=== PATIENT | female | born 1975 | race Caucasian/White ===

== ENCOUNTER 2017-07-24 21:26 | Inpatient (IN) | payer SELFPAY ==
[2017-07-24 22:40] LABS: Mean Corpuscular HGB CONC 29.9 g/dL (32.0-36.0); Mean Corpuscular Hemoglobin 19.6 pg (27.0-31.0); Mean Corpuscular Volume 65.5 fl (81.0-99.0); Mean Platelet Volume 9.8 fL (7.4-10.4); Platelet Count 381 thou/uL (130-400); RBC Distribution Width 18.1 % (11.5-14.5); Red Blood Cell (RBC) Count 3.57 mill/uL (4.20-5.40); White Blood Cell (WBC) Count 5.9 thou/uL (4.8-10.8)
[2017-07-24 22:48] LABS: Anisocytosis SLIGHT = 6-15 cells (100X) (0-5/hpf); Band 8 % (5-11); Hypochromia MODERATE=16-30 cells (100X) (0-5/hpf); Lymphocytes 17 % (21-51); MDiff Complete? YES; Microcytosis MODERATE=15-30 cells (100X) (0-5/hpf); Monocytes 11 % (0-10); Neutrophil 64 % (42-75)
[2017-07-24 22:51] LABS: ALT (SGPT) 10 U/L (8-55); AST (SGOT) 14 U/L (5-34); Albumin 3.6 g/dL (3.5-5.0); Alkaline Phosphatase 82 U/L (40-150); Anion Gap 9 mmol/L (10-20); BUN (Urea Nitrogen) 8 mg/dL (7.0-18.7); Bilirubin, Total 0.3 mg/dL (0.2-1.2); Calc. Creatinine Clearance 0 mL/min (70-130); Calcium 8.3 mg/dL (7.8-10.44); Carbon Dioxide 23 mmol/L (22-29); Chloride 104 mmol/L (98-107); Estimated GFR-MDRD 78; Globulin 3.2 g/dL (2.4-3.5); Glucose 98 mg/dL (70-105); Potassium 3.4 mmol/L (3.5-5.1); Protein, Total 6.8 g/dL (6.0-8.3); Sodium 133 mmol/L (136-145)
[2017-07-24 22:52] LABS: Bilirubin Negative (Negative); Blood, Urine Small (Negative); Clarity CLEAR (Clear); Glucose, Urine (Dipstick) Negative (Negative); Leukocyte Negative (Negative); Nitrite Negative (Negative); Protein, Urine (Dipstick) Negative (Neg-Trace); Specific Gravity, Urine 1.016 (1.002-1.036); Urobilinogen 0.2 mg/dL (0.2-1.0)
[2017-07-24 22:54] LABS: Bacteria/HPF None Seen HPF (None Seen); Hyaline Casts/LPF 0-3 HYALINE CAST LPF (0-3 Hyaline); Squamous Epithelial 0-3 HPF (0-3); WBC/HPF 0-3 HPF (0-3)
--- NOTE | 2017-07-25 00:40 | PDOC.EVN ---
Event Note - Event Note Event Note: ER HUMAN RESOURCES TRAINEE Consult (Room 13) Reason for eval: HX HMB Requesting MD: Zev (via Resident) HPI: 41 yo W SAB2 with HX 4 mos of irregulat HMB. Was seen in [place] and sent here for "blood transfusion". Hgb there was 6-7, and 7 here (Hct 21). the resident in the ED has ordered 1 unit PRBC due to patient complaint of dizziness. I evaluated the patient in room 13 at 0030. Past med HX: Rt elbow bursitis Rx with rocephin Allergies: sulfa/Toradol Surg: BTL in 90s, arthroscopy Rn Embedded HX: no Rn Embedded MD, no past work up for HMB Physical exam: Pulse 104, temp was 100 NAD Abd sodt nt pelvic by me: noCMT, no VB, no blood in vault Labs ordered: TSH GC/CHL PCR Radiology ordered: pelvic sono EMB pending (requested formalin cup) Assessment: HMB in a 41 year old Plan: 1. TSH, vWF ordered 2. GC/CHL PCR 3. No indication for inpatient historical manuscripts curator care as not actively bleeding 4. may start oral provera 10mg po BID x 7 days, then i po QD for 2 weeks to prevent recurrence until MD office eval 5. Sono pending 6. EMB ordered (I will do once formalin container in) 7. D/W Dr Brothers.
[2017-07-25] MEDS ORDERED: Fentanyl 100 MCG/2 ML VIAL ONE (01:00)
--- NOTE | 2017-07-25 01:07 | PDOC.EVN ---
Event Note - Event Note Event Note: EMB performed by me. No cx lesions identified. EMB X 1 pass only as patient requested for further passes due to cramping. Cant tissue obtained. Sent to pathology.
--- NOTE | 2017-07-25 02:53 | PDOC.EVN ---
Event Note - Event Note Event Note: Lab check: TSH normal
[2017-07-25] MEDS ORDERED: Acetaminophen 325 MG TAB PO PRN ×2 (03:21→06:52)
[2017-07-25] MEDS ORDERED: HYDROcodone/Acetaminophen 5/325 mg Tablet PO PRN ×2 (03:21)
[2017-07-25 03:37] VITALS: BMI 23.9
[2017-07-25] MEDS: Sodium Chloride 0.9% 1,000 ML IV SCH ×4 (04:16→14:49)
[2017-07-25] MEDS: Piperacillin-Tazo-Dextrose,Iso 3.375 GM in Premix Bag 1 BAG IVPB SCH ×2 (06:06→11:31)
--- NOTE | 2017-07-25 06:43 | PDOC.EVN ---
Event Note - Event Note Event Note: Patient did receive 1 unit PRBC from ED (not listed in EMR). Sono results pending. GC-Chl pending. EMB pending. ABX per medicine for elbow bursitis.
[2017-07-25] MEDS ORDERED: Ondansetron HCl/PF 4 MG/2 ML Vial IVP PRN (06:52)
[2017-07-25] MEDS ORDERED: Mag-Al 1200 mg/1200 mg/30 ML UDCUP PO PRN (06:52)
[2017-07-25] MEDS ORDERED: hydrALAZINE 20 MG/ML VIAL SLOW IVP PRN (06:52)
[2017-07-25] MEDS ORDERED: cloNIDine 0.1 MG TAB PO PRN (06:52)
[2017-07-25] MEDS ORDERED: Senokot 8.6 MG TAB PO PRN (06:52)
[2017-07-25] MEDS ORDERED: Loratadine 10 MG TAB PO PRN (06:52)
[2017-07-25] MEDS ORDERED: Bisacodyl 5 MG TAB PO PRN (06:52)
[2017-07-25 07:45] LABS: Hemoglobin 8.1 g/dL (12.0-16.0)
[2017-07-25 07:53] LABS: Anion Gap 12 mmol/L (10-20); BUN (Urea Nitrogen) 6 mg/dL (7.0-18.7); Calc. Creatinine Clearance 89 mL/min (70-130); Calcium 8.4 mg/dL (7.8-10.44); Carbon Dioxide 22 mmol/L (22-29); Chloride 102 mmol/L (98-107); Estimated GFR-MDRD 79; Glucose 113 mg/dL (70-105); Potassium 3.2 mmol/L (3.5-5.1); Sodium 133 mmol/L (136-145)
[2017-07-25] MEDS: Famotidine 20 MG TAB PO SCH ×2 (08:51→20:18)
[2017-07-25] MEDS: Vancomycin HCl 750 MG in Sodium Chloride 0.9% 250 ML 250 ML IVPB SCH ×2 (09:00→20:10)
[2017-07-25] MEDS ORDERED: Vancomycin HCl 1.5 GM in Sodium Chloride 0.9% 250 ML 300 ML IVPB SCH (09:00)
--- NOTE | 2017-07-25 09:10 | ULT ---
PRELIMINARY REPORT/[facility]/EMERGENCY AFTER HOURS PROCEDURE: EXAM: US Pelvis, Transvaginal CLINICAL HISTORY: 41 years old, female; Signs and symptoms; Other: Prolonged vag bleeding, anemia TECHNIQUE: Real-time transvaginal pelvic ultrasound (complete) with image documentation. Transvaginal imaging wa s used for better evaluation of the endometrium and adnexa. COMPARISON: No relevant prior studies available. FINDINGS: Uterus/cervix: 8.0 x 4.1 x 4.4 cm. Normal endometrial stripe thickness at 4 mm. 0.5 cm oval myometria l focus, ventrally in the fundus may reflect a very small fibroid. Right ovary: No acute findings. No solid mass. Normal blood flow. Left ovary: No acute findings. No solid mass. Normal blood flow. Free fluid: Small volume in cul de sac, likely within normal physiologic limits. IMPRESSION: No visible source of excessive bleeding. Small probable fibroid as described. EXAM: US Duplex Arterial/Venous of the Pelvis, Complete CLINICAL HISTORY: Prolonged bleeding. Anemia. TECHNIQUE: Real-time duplex ultrasound scan of the arterial and venous flow of the pelvis with color Doppler dorothy w and spectral waveform analysis. COMPARISON: FINDINGS: Right ovary: No acute findings. 1.7 x 1.3 x 0.9 cm. No solid mass. Normal arterial and venous blood f low. No torsion. Left ovary: No acute findings. 2.8 x 1.6 x 1.9 cm. Several small simple cysts, largest measuring 1.3 x 1.3 x 1.4 cm. Normal arterial and venous blood flow. No torsion. IMPRESSION: Normal vascular flow. No acute disease. Thank you for allowing us to participate in the care of your patient. Dictated and Authenticated by: Mansoor Linn MD 07/25/2017 2:40 AM Central Time ([place] & [place]) FINAL REPORT PELVIC ULTRASOUND TRANSVAGINAL AND TRANSABDOMINAL WITH RINALDI SCALE AND DOPPLER COLOR FLOW IMAGING: FINDINGS/IMPRESSION: I agree with the preliminary interpretation. Mild nonspecific free pelvic fluid. Additional details are described above. POS: [facility]
[2017-07-25] MEDS: Piperacillin/Tazobactam 3.375 GM in Sodium Chloride 0.9% 100 ML IVPB SCH ×3 (11:33→21:19)
[2017-07-25] MEDS: medroxyPROGESTERone Acetate 5 MG TAB PO SCH ×2 (11:33→21:18)
--- NOTE | 2017-07-25 11:36 | RAD ---
RIGHT ELBOW 4 VIEW SERIES: CLINICAL HISTORY: Bursitis, septic arthritis. FINDINGS: The evaluation is limited without the position if a true lateral view. No obvious arthropathy or acu te osseous process. IMPRESSION: Limited exam, as above. If there is concern for septic arthritis, consider MRI to further evaluate. POS: [facility]
[2017-07-25] MEDS: HYDROcodone/Acetaminophen 5/325 mg Tablet PO PRN ×2 (14:48→20:17)
--- NOTE | 2017-07-25 15:50 | EKG ---
Test Reason : Blood Pressure : / mmHG Vent. Rate : 098 BPM Atrial Rate : 098 BPM P-R Int : 132 ms QRS Dur : 070 ms QT Int : 328 ms P-R-T Axes : 059 050 054 degrees QTc Int : 418 ms Normal sinus rhythm Normal ECG Confirmed by RADHA HERNANDEZ MD ([id number]), material expeditor SUZAN JOSHI ([id number]) on 07/25/2017 3:50:20 PM Referred By: Confirmed By:RADHA HERNANDEZ MD
[2017-07-25] MEDS ORDERED: Sodium Chloride 0.9% 10 ML ONE ×3 (17:35→23:15)
--- NOTE | 2017-07-25 18:41 | HP ---
DATE OF ADMISSION: 07/25/2017 PRIMARY CARE PHYSICIAN: None. CHIEF COMPLAINT: Worsening pain and redness in the right elbow as well as heavy vaginal bleed. HISTORY OF PRESENT ILLNESS: Ms. Lacy is a 41-year-old female with past medical history, who pre sented to the emergency room with complaints of mainly heavy vaginal bleed. History is mainly obtain ed by the patient herself. Electronic medical records have been reviewed. According to Ms. Lacy and she is perimenopausal and on and off she is having excessive bleeding for the last 4 months. She also complains that about 10 days ago she was bitten by a flea on her rig ht elbow and since then it has been swollen, red, hot, and tender. She is started to take clindamyci n left over from her 's prescription and 2 days later she presented to outside ER. She was pr escribed clindamycin and Keflex, but she has been taking up until now. Upon presentation, it was noted that her elbow is still hot and red and attempt was made to drain the right elbow abscess at outside ER without any success. Incidental finding was noticed with a hemogl obin of 6 with an hematocrit of 21. Because of these findings, she was transferred to our emergency room. She was admitted to [facility] floor under internal medicine care. She has received 1 unit of pac ked RBC as well as IV antibiotics in the emergency room. She has been seen by Dr. Fisher from the OB/ [facility] group and has undergone a pelvic ultrasound, which was unremarkable. She has been started on Pro vera orally. She is now being admitted for further evaluation and care of her right elbow infection with failed ou tpatient therapy. The patient also complains of nonproductive cough and sore throat and runny nose. She reports that h er has ongoing reoccurrence Staph infections and is under care for ID specialist, Dr. Bardales. PAST MEDICAL HISTORY: Chronic bronchitis. PAST SURGICAL HISTORY: Tubal ligation and right knee surgery. PSYCHIATRIC HISTORY: No anxiety or depression. SOCIAL HISTORY: She denies any drug, tobacco, or alcohol abuse. FAMILY HISTORY: No significant premature coronary artery disease or stroke. ALLERGIES: SULFONAMIDES, TORADOL, and TRAMADOL. MEDICATIONS: None. REVIEW OF SYSTEMS: The following complete review of systems was negative, unless otherwise mentioned in the HPI or below: Constitutional: Weight loss or gain, ability to conduct usual activities. Skin: Rash, itching. Eyes: Double vision, pain. ENT/Mouth: Nose bleeding, neck stiffness, pain, tenderness. Cardiovascular: Palpitations, dyspnea on exertion, orthopnea. Respiratory: Shortness of breath, wheezing, cough, hemoptysis, fever or night sweats. Gastrointestinal: Poor appetite, abdominal pain, heartburn, nausea, vomiting, constipation, or diarrh ea. Genitourinary: Urgency, frequency, dysuria, nocturia. Musculoskeletal: Pain, swelling. Neurologic/Psychiatric: Anxiety, depression. Allergy/Immunologic: Skin rash, bleeding tendency. It is negative except for those mentioned in the history and physical. LABORATORY DATA: CBC shows WBCs at 5.9, hemoglobin 7 with repeat hemoglobin of 8.1 after transfusion , platelet count of 381. She has no left shift. Serum chemistries shows sodium 133 and potassium 3. 4. C-reactive protein 1.02. TSH normal. Urinalysis is unremarkable except for small blood. PHYSICAL EXAMINATION: VITAL SIGNS: Most recent vital signs include temperature anywhere from 100.5 to 100.7, respirations 20, saturating 100% on room air, and blood pressure 133/66. GENERAL: No acute distress, awake, alert, oriented x3. HEENT: Mucous membrane is moist and pink. No oropharyngeal exudate or erythema. Head is normocepha lic, atraumatic. Pupils equal, reactive to light and accommodation. Extraocular movements intact. NECK: Supple without any lymphadenopathy, JVD, or bruit. CHEST: Clear to auscultation without any wheezing, rales, or rhonchi. Rate and rhythm is regular wi thout any murmur, rubs, or gallops. ABDOMEN: Soft, nontender, nondistended with positive bowel sounds. EXTREMITIES: Showed indurated, erythematous, and hot elbow on the right side, which is localized ove r the elbow joint without any extension of the erythema or warmth to the arm or forearm. It is mildl y tender to palpation. Lowe extremity exam is normal. No cyanosis, clubbing, or edema. NEUROLOGIC: Nonfocal. SKIN: Free of any rashes or bruises, except for the right elbow as above. PSYCHIATRIC: Some agitation noticed. IMPRESSION AND PLAN: 1. Cellulitis versus inflammatory bursitis of the elbow. At this time, we will obtain an x-ray of t he elbow to rule out underlying deep infection and consult ID for the failed outpatient therapy. We will start her on broad spectrum IV antibiotics and follow the culture results. 2. Heavy perimenopausal bleeding. The patient has undergone a biopsy and has been started on approp riate treatment by [facility]. She is instructed to follow up as an outpatient. Various studies includi ng von Willebrand factor and GC chlamydia profile has been requested. 4. Deep venous thrombosis and gastrointestinal prophylaxis. 5. Add p.r.n. medication orders. DISPOSITION: The patient is currently being admitted to rule out septic arthritis and treatment of t he elbow infection that has failed outpatient therapy. Estimated length of stay is at least 2-3 midn ights. Further management will depend upon her clinical course.
[2017-07-25] MEDS ORDERED: Diabetic Tussin 200 MG/10 ML UDCUP PO PRN (22:49)
[2017-07-25] MEDS ORDERED: Albuterol Sulfate 2.5 mg/3 ml Neb NEB SCH (23:00)
[2017-07-25] MEDS ORDERED: Ibuprofen 200 MG TAB PO SCH (23:00)
[2017-07-25] MEDS ORDERED: Furosemide 20 MG/2 ML VIAL SLOW IVP SCH (23:00)
[2017-07-25] MEDS: Benzonatate 100 MG CAP PO PRN (23:37)
[2017-07-26] MEDS ORDERED: Oseltamivir 75 MG CAP PO SCH (01:45)
[2017-07-26] MEDS: HYDROcodone/Acetaminophen 5/325 mg Tablet PO PRN ×4 (02:00→20:05)
[2017-07-26] MEDS: Piperacillin/Tazobactam 3.375 GM in Sodium Chloride 0.9% 100 ML IVPB SCH ×4 (03:17→21:32)
[2017-07-26] MEDS: Oseltamivir 75 MG CAP PO SCH ×2 (08:58→21:33)
[2017-07-26] MEDS: Famotidine 20 MG TAB PO SCH ×2 (08:58→21:33)
[2017-07-26] MEDS: Vancomycin HCl 750 MG in Sodium Chloride 0.9% 250 ML 250 ML IVPB SCH (08:58)
[2017-07-26] MEDS: Ibuprofen 200 MG TAB PO SCH ×3 (09:00→21:33)
[2017-07-26] MEDS: Sodium Chloride 0.9% 1,000 ML IV SCH ×2 (09:06→23:06)
[2017-07-26] MEDS: Benzonatate 100 MG CAP PO PRN (09:38)
[2017-07-26] MEDS: medroxyPROGESTERone Acetate 5 MG TAB PO SCH ×2 (09:38→22:44)
[2017-07-26 11:11] LABS: Hemoglobin 7.8 g/dL (12.0-16.0)
[2017-07-26 11:31] LABS: Anion Gap 10 mmol/L (10-20); BUN (Urea Nitrogen) 11 mg/dL (7.0-18.7); Calc. Creatinine Clearance 90 mL/min (70-130); Calcium 8.4 mg/dL (7.8-10.44); Carbon Dioxide 25 mmol/L (22-29); Chloride 107 mmol/L (98-107); Estimated GFR-MDRD 81; Glucose 101 mg/dL (70-105); Potassium 3.4 mmol/L (3.5-5.1); Sodium 139 mmol/L (136-145)
[2017-07-26] MEDS ORDERED: Cyclobenzaprine 10 MG TAB PO PRN (11:31)
--- NOTE | 2017-07-26 15:23 | PDOC.PN ---
- Subjective Encounter Start Date: 07/26/17 Encounter Start Time: 15:21 Subjective: c/o worsening pain in elbow and now in arm -: c/o muscle spasms in legs - Objective MAR Reviewed: Yes Vital Signs & Weight: Vital Signs (12 hours) Temp Pulse Resp BP Pulse Ox 07/26/17 11:59 97.8 F 78 18 139/65 97 07/26/17 08:15 97.7 F 88 20 128/62 98 07/26/17 04:40 98.2 F 80 18 128/58 L Weight Admit Weight 135 lb Weight 135 lb I&O: 07/25/17 07/26/17 07/27/17 06:59 06:59 06:59 Intake Total 521 2775 Output Total 300 2700 Balance 221 75 Result Diagrams: 07/26/17 10:46 07/26/17 10:46 Additional Labs: Microbiology 07/25/17 12:20 Nasopharyngeal swab Respiratory Virus Panel (PCR) ([facility]) - Final Phys Exam - Physical Examination Constitutional: NAD HEENT: PERRLA, moist MMs, sclera anicteric, oral pharynx no lesions Neck: no nodes, no JVD, supple, full ROM Respiratory: no wheezing, no rales, no rhonchi, clear to auscultation bilateral Cardiovascular: RRR, no significant murmur Gastrointestinal: soft, non-tender, no distention, positive bowel sounds Musculoskeletal: no edema, pulses present r elbow olecranon redness actually is better w peeling.mild crepitus Neurological: non-focal, normal sensation, moves all 4 limbs Psychiatric: normal affect, A&O x 3 Dx/Plan (1) Acute blood loss anemia Code(s): D62 - ACUTE POSTHEMORRHAGIC ANEMIA Status: Acute (2) Bursitis of elbow Code(s): M70.30 - OTHER BURSITIS OF ELBOW, UNSPECIFIED ELBOW Status: Acute (3) Heavy menstrual bleeding Code(s): N92.0 - EXCESSIVE AND FREQUENT MENSTRUATION WITH REGULAR CYCLE Status : Acute Qualifiers: Menorrahagia type: with irregular cycle Qualified Code(s): N92.1 - Excessive and frequent menstruation with irregular cycle - Plan DVT proph w/SCDs cont IV ABx.ID recs pending.clinically better -: H/h stable.on depoprovera per OB.OP f/u -: emelyn SAVAGE soon on PO ABx if cleared by ID -: Narcotic seeking behavior * . Review of Systems - Review of Systems Constitutional: malaise. negative: fever, chills, sweats, weakness, other Respiratory: Cough. negative: Dry, Shortness of Breath, Hemoptysis, SOB with Excertion, Pleuritic Pain, Sputum, Wheezing Cardiovascular: negative: chest pain, palpitations, orthopnea, paroxysmal nocturnal dyspnea, edema, light headedness, other Gastrointestinal: negative: Nausea, Vomiting, Abdominal Pain, Diarrhea, Constipation, Melena, Hematochezia, Other Genitourinary: negative: Dysuria, Frequency, Incontinence, Hematuria, Retention , Other Musculoskeletal: Arm Pain, Hand Pain - Medications/Allergies Allergies/Adverse Reactions: Allergies Allergy/AdvReac Type Severity Reaction Status Date / Time Bleach (Sodium Hypochlorite) Allergy Verified 07/25/17 03:12 ketorolac [From Toradol] Allergy Anaphylaxis Verified 07/25/17 03:12 Sulfa (Sulfonamide Allergy Anaphylaxis Verified 07/25/17 03:12 Antibiotics) tramadol Allergy Rash Verified 07/25/17 03:12 Medications: Current Medications Acetaminophen (Tylenol) 650 mg PO Q4H PRN PRN Reason: Headache/Fever or Pain Hydrocodone Bitart/Acetaminophen (Adams 5/325) 1 tab PO Q4H PRN PRN Reason: Moderate Pain (4-6) Last Admin: 07/26/17 08:58 Dose: 1 tab Hydrocodone Bitart/Acetaminophen (Adams 5/325) 2 tab PO Q4H PRN PRN Reason: Severe Pain (7-10) Last Admin: 07/26/17 13:54 Dose: 2 tab Al Hydroxide/Mg Hydroxide (Maalox) 30 ml PO Q6H PRN PRN Reason: Heartburn or Indigestion Benzonatate (Tessalon) 100 mg PO Q4H PRN PRN Reason: Cough Last Admin: 07/26/17 09:38 Dose: 100 mg Bisacodyl (Dulcolax) 10 mg PO DAILYPRN PRN PRN Reason: Constipation Clonidine (Catapres) 0.1 mg PO Q4H PRN PRN Reason: Systolic BP > 160 Cyclobenzaprine HCl (Flexeril) 10 mg PO TID PRN PRN Reason: Muscle Spasm Famotidine (Pepcid) 20 mg PO BID [facility] Last Admin: 07/26/17 08:58 Dose: 20 mg Guaifenesin (Robitussin Sf) 300 mg PO Q6H PRN PRN Reason: Cough Hydralazine HCl (Apresoline) 10 mg SLOW IVP Q4H PRN PRN Reason: Systolic BP > 180 Sodium Chloride (Normal Saline 0.9%) 1,000 mls @ 75 mls/hr IV .[id number] [facility] Last Admin: 07/26/17 09:06 Dose: 1,000 mls Piperacillin Sod/Tazobactam (Sod 3.375 gm/ Sodium Chloride) 100 mls @ 200 mls/ hr IVPB 0300,0900,1500,2100 [facility] Last Admin: 07/26/17 10:36 Dose: 100 mls Vancomycin HCl 750 mg/ Sodium (Chloride) 250 mls @ 250 mls/hr IVPB 0800,2000 [facility] Last Admin: 07/26/17 08:58 Dose: 250 mls Ibuprofen (Motrin) 400 mg PO TID [facility] Last Admin: 07/26/17 09:00 Dose: Not Given Loratadine (Claritin) 10 mg PO DAILYPRN PRN PRN Reason: Sinus Symptoms Medroxyprogesterone Acetate (Provera) 10 mg PO BID [facility] Last Admin: 07/26/17 09:38 Dose: 10 mg Miscellaneous Medication (Pharmacy To Dose) 1 each IVPB .VANCOMYCIN [facility] Ondansetron HCl (Zofran) 4 mg IVP Q6H PRN PRN Reason: Nausea/Vomiting Oseltamivir Phosphate (Tamiflu) 75 mg PO BID [facility] Stop: 07/30/17 09:01 Last Admin: 07/26/17 08:58 Dose: 75 mg Senna (Senokot) 2 tab PO HSPRN PRN PRN Reason: Constipation
[2017-07-26 19:21] LABS: Vancomycin, Trough 7.2 ug/mL
[2017-07-26] MEDS ORDERED: Vancomycin HCl 1 GM in Premix Bag 1 BAG IVPB SCH (20:00)
--- NOTE | 2017-07-26 20:51 | CON ---
DATE OF CONSULTATION: 07/26/2017 REASON FOR CONSULTATION: Right elbow inflammatory process and influenza. 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 This time is her turn, she presents with heavy vaginal bleeding, history of anemia and she seems to be in the perimenopausal state at the same time, she had the inflammatory process right elbow, which has been treated with clindamycin and Keflex without improvement and they attempted bursa aspiration, which was not successful in [place]. She also had some respiratory symptoms, her has r espiratory symptoms consistent with influenza. She tested positive here. No headaches, no visual sy mptoms, no back pain. Little bit of cough. No sputum production, no abdominal pain or diarrhea, no genitourinary symptoms, no other joint symptoms, no neurological symptoms. PAST MEDICAL HISTORY: Bronchitis. PAST SURGICAL HISTORY: Tubal ligation and right knee surgery. SOCIAL HISTORY: Denies smoking. No IV drug use. FAMILY HISTORY: Noncontributory. ALLERGIES: SULFA DRUGS, TORADOL and TRAMADOL. CURRENT MEDICATIONS: Tylenol, Mcdaniel, Maalox, Tessalon, Dulcolax, Catapres, Flexeril, Pepcid, Apresol ine, Motrin, Claritin, Provera, Zofran, Tamiflu, Zosyn, vancomycin. PHYSICAL EXAMINATION: VITAL SIGNS: T-max 100.7. She is currently 97.8, blood pressure 139/65, pulse 78, respirations 18. SKIN: Shows the area of olecranon bursitis, right side. No other skin lesions. Peripheral IV acces s. No Roy catheter. No lymphadenopathy. HEENT: Ocular movements normal. Sclerae white. Conjunctivae normal. Oral cavity normal. NECK: Supple, no jugular venous distention. LUNGS: With symmetric air entry with no crackles or wheezing. HEART: S1, S2, regular rate. No S3 or S4. ABDOMEN: Soft, not distended or tender. No ascites. No bladder distention. EXTREMITIES: No joint inflammatory activity outside the areas of involvement. Pulses is 2+ in dorsa lis pedis. Moves all extremities equally. Some limitations due to the right elbow inflammatory proc ess. NEUROLOGIC: Cognitive function is normal. LABORATORY: White cell count 5.9, hemoglobin 7, MCV 65, platelets 381, 8 % bands. Sodium 139, creat inine 0.78. Liver profile normal. CRP 1.02, albumin 3.6. Urinalysis fairly unremarkable. Microbio logy with positive influenza test, influenza H1 detected. Elbow x-ray with no acute osseous process noted. Apparently, she had an endometrial biopsy and the results are pending. ASSESSMENT: Most likely Staphylococcal, possibly MRSA infection, right elbow bursa as well as influe nza A. We will see if we can arrange for Zyvox in the outpatient setting for patient assistance tyrese morel from the drug company. If so, she will be able to be discharged on 10-14 days of oral Zyvox plus protection of the right olecranon area, finish with course of Tamiflu. We will give her 5 d ays of Tamiflu as well.
[2017-07-27 00:33] LABS: Chlamydia by PCR Not Detected (NotDetected); GC by PCR Not Detected (NotDetected)
[2017-07-27] MEDS: Piperacillin/Tazobactam 3.375 GM in Sodium Chloride 0.9% 100 ML IVPB SCH ×2 (03:10→09:25)
[2017-07-27] MEDS: Sodium Chloride 0.9% 1,000 ML IV SCH (05:54)
[2017-07-27] MEDS ORDERED: Vancomycin HCl 1 GM in Premix Bag 1 BAG IVPB SCH (06:00)
--- NOTE | 2017-07-27 06:12 | PDOC.EVN ---
Event Note - Event Note Event Note: Lab check: GC/Chl negative. Will sign off at this time. Outpatient follow up at [facility] for outpatient gynecology recommended.
[2017-07-27] MEDS: HYDROcodone/Acetaminophen 5/325 mg Tablet PO PRN (07:34)
[2017-07-27] MEDS: Famotidine 20 MG TAB PO SCH (07:34)
[2017-07-27 07:36] VITALS: TEMP 98.3
[2017-07-27] MEDS: Oseltamivir 75 MG CAP PO SCH (09:22)
[2017-07-27] MEDS: medroxyPROGESTERone Acetate 5 MG TAB PO SCH (09:22)
[2017-07-27] MEDS: Ibuprofen 200 MG TAB PO SCH (09:22)
[2017-07-27 09:52] LABS: Hemoglobin 7.9 g/dL (12.0-16.0)
[2017-07-27 10:01] LABS: Potassium 3.7 mmol/L (3.5-5.1)
[2017-07-27 11:36] VITALS: BP 165/68
--- NOTE | 2017-07-28 01:43 | DIS ---
DATE OF ADMISSION: 07/25/2017 DATE OF DISCHARGE: 07/27/2017 CONDITION AT THE TIME OF DISCHARGE: Stable and improved. DISCHARGE DIAGNOSES: 1. Elbow bursitis. 2. Dysfunctional uterine bleeding, status post endometrial biopsy. 3. Acute blood loss anemia, stabilized after transfusion. 4. Drug seeking behavior. DISCHARGE MEDICATIONS: Provera 10 mg p.o. b.i.d. for 5 more days and then once daily for 2 weeks, Ta miflu 75 mg p.o. b.i.d. for 7 more doses, Zyvox 600 mg p.o. b.i.d. for 2 weeks. Medication prescript ion assistance was provided to the patient. CONSULTATIONS: 1. BOILER HELPER, Dr. Filippo Fisher. 2. Infectious Disease, Dr. Bardales. PROCEDURES DONE IN THE HOSPITAL: 1. Transvaginal and pelvic ultrasound, which is rather unremarkable except for small fibroid. 2. Endometrial biopsy. 3. Elbow x-ray, which did not show any deep infection. HISTORY OF PRESENTING ILLNESS: Ms. Lacy is a 41-year-old female without any significant past me dical history who presented with complaints of worsening redness and pain of her elbow despite outpat ient antibiotic therapy with clindamycin and Keflex. She reported worsening of the redness. She als o complained of heavy vaginal bleeding and was found to have anemia with hemoglobin of 6.4. She rece ived 1 unit of packed RBC in the emergency room and was started on empiric IV antibiotics and was adm itted to Medicine Team. BOILER HELPER was consulted. Please see admission history and physical for further details. HOSPITAL COURSE: The patient was seen by BOILER HELPER, Dr. Fisher, who did an endometrial biopsy, the resul ts are pending at this time. The vaginal bleed has stopped. Ultrasound did not show any significant abnormality. She was started on Provera, which she tolerated very well and helped reduce the bleedi ng. Her H&H has been stable and her discharge hemoglobin is 7.9. With regards to her elbow, ID was consulted and he recommended Zyvox. The patient's symptom improved clinically and medication assistance was arranged with the help of the case monitor. She was seen and examined prior to discharge. Her vital signs are stable. No acute distress. Chest is clear to auscultation. Elbow examination, improved erythema, swelling, and tenderness. Rat e and rhythm is regular. She was instructed to make appointment and follow up with primary care physician. The patient has be en asking for multiple pain medications as well as muscle relaxants as well as sedatives as well as a ntianxiety and antipsychotic medications. I will refer her to the primary care physician with all of these. She has exhibited significant drug-seeking behavior fueled by her present in the [facility]. In any case, she is instructed to follow up with [facility] [place] in 7 days an leti Bardales in 14 days.
== END 2017-07-27 16:22 | disposition home or self-care (01) | DRG 744 ==
LOC: ERS 21:26 → ERHOLD 07-25 01:21 → 3SE 07-25 03:02
PROVIDERS: ADMIT Internal Medicine; ATTEND Internal Medicine
PROC: 0UDB7ZX Extraction of Endometrium, Via Natural or Artificial Opening, Diagnostic (ICD-10-PCS; principal; 2017-07-25)
PROC: 30233N1 Transfusion of Nonautologous Red Blood Cells into Peripheral Vein, Percutaneous Approach (ICD-10-PCS; 2017-07-25)
DX: N93.8 Other specified abnormal uterine and vaginal bleeding (principal); D62 Acute posthemorrhagic anemia; J42 Unspecified chronic bronchitis; B95.62 Methicillin resistant Staphylococcus aureus infection as the cause of diseases classified elsewhere; Z76.5 Malingerer [conscious simulation]; M71.121 Other infective bursitis, right elbow
CPT/HCPCS: 36415; 36430; 76856; 80048; 80202; 81003; 81015; 84132; 84443; 85014; 85018; 85245; 85246; 85652; 86140; 86850; 86900; 86901; 87491; 87591; 87633; 88305; 93005; 94640; 96374; A4216; J1940; J2543; J3010; J3370; J7050; J7611; P9016

== ENCOUNTER 2019-03-21 00:17 | Observation (INO) | payer SELFPAY ==
[2019-03-21 01:07] LABS: INR-International Normal Ratio 1.2; PTT 29.1 SEC (22.9-36.1); Prothrombin Time 14.7 SEC (12.0-14.7)
[2019-03-21 01:09] LABS: BHCG - Serum Negative (NEGATIVE); Pregs Control Background? CLEAR/WHITE (CLR/WHITE); Pregs Control Bar Appear? YES (CONTROL BAR)
[2019-03-21 01:18] LABS: Acetaminophen Less than 6.0 mcg/mL (10.0-30.0); Alcohol Less than 10 mg/dL (Less than 10); Salicylate Less than 8.0 mg/dL (15.0-30.0)
[2019-03-21] MEDS ORDERED: Acetaminophen 500 MG TAB ONE (02:22)
[2019-03-21] MEDS ORDERED: Ondansetron PF 4 MG/2 ML Vial ONE (02:22)
[2019-03-21] MEDS ORDERED: Ondansetron PF 4 MG/2 ML Vial IVP PRN (03:21)
[2019-03-21] MEDS ORDERED: Acetaminophen 325 MG TAB PO PRN (03:21)
[2019-03-21] MEDS ORDERED: Ondansetron ODT 4 MG TAB SL PRN (03:21)
[2019-03-21] MEDS: Lactated Ringer's 1,000 ML IV SCH ×2 (04:10→12:00)
[2019-03-21] MEDS ORDERED: Sodium Chloride 0.9% 10 ML ONE (08:33)
--- NOTE | 2019-03-21 08:43 | ULT ---
PRELIMINARY REPORT/[facility]/EMERGENCY AFTER HOURS PROCEDURE: EXAM: US Pelvis Complete, Transabdominal EXAM DATE/TIME: 03/21/2019 1:32 AM CLINICAL HISTORY: 43 years old, female; Dysmenorrhea and pelvic pain TECHNIQUE: Imaging protocol: Real-time transabdominal pelvic ultrasound with image documentation. Complete exam. COMPARISON: No relevant prior studies available. FINDINGS: Uterus/cervix: Unremarkable. Measures 8.6 x 3.8 x 4.7 cm. Normal endometrial stripe thickness, 0.6 cm . Right adnexa: Unremarkable. Ovary measures 1.9 x 1.5 x 2 cm. Ovarian Doppler flow demonstrated. Left adnexa: Unremarkable other than containing 2.8 and 1.6 cm cysts. Ovary measures 3.3 x 2.4 x 3.2 cm. Ovarian Doppler flow demonstrated. Free fluid: Small amount of cul-de-sac free fluid. IMPRESSION: No acute findings. Two left ovarian cysts, the larger measuring 2.8 cm. Thank you for allowing us to participate in the care of your patient. Dictated and Authenticated by: Juan Antonio Ambrosio MD 03/21/2019 2:23 AM Central Time ([place] & [place]) FINAL REPORT PELVIC ULTRASOUND WITH TRANSVAGINAL IMAGING AND COLOR AND SPECTRAL DOPPLER IMAGING: (No transabdominal imaging was performed) EMERGENT AFTER HOURS EXAM TIME: 0151 hours. DATE: 03/21/2019. Minimal free pelvic fluid. Two left ovarian cysts up to 1.7 x 2.8 cm. No evidence for other signifi cant process. This report is in agreement with the preliminary report. POS: [facility]
--- NOTE | 2019-03-21 10:36 | HP ---
ADMITTING DIAGNOSIS: Symptomatic anemia with vaginal bleeding. HISTORY OF PRESENT ILLNESS: The patient is a 43-year-old female, who was transferred from [facility] with complaints of weakness and dizziness and vaginal bleeding. The patient reports that the patient was diagnosed with anemia requiring blood transfusion and was given orders for 2 units of packed red blood cells and admitted to the floor. At the time of my evaluation, the patient was receiving her second unit of blood. She reports that she has irregular vaginal bleeding that was controlled at a previous intervention with outpatient Provera. The patient reports that she has months with amenorrhea followed by irregular periods, followed by heavy bleeding and amenorrhea once again. She reports that she started bleeding heavy again this summer with bleeding 2 to 3 weeks out of the month. She was seen last July for similar problem, was given in her evaluation at that time had an endometrial biopsy resulting in normal fragments of proliferative phase endometrium without any hyperplasia or malignancy. Again, she was placed on Provera 10 mg b.i.d. followed by once daily for 2 weeks with instructions to follow up with [facility] [place]. The patient reports that she failed to do that due to money limitations. She does report that her bleeding seems to be slowing down the last day or so. Her biggest concern this morning is that she is hungry. She reports a 40 plus pound weight loss in the last 3 months. She denies anorexia. Denies fevers. Denies diarrhea, nausea and vomiting, any palpable masses, worsening cough. She denies trauma, any new rashes, hip problems, knee problems, urinary urgency or frequency. PAST MEDICAL HISTORY: Includes depression and anxiety, longstanding abnormal uterine bleeding, and COPD. PAST SURGICAL HISTORY: She has had tubal ligation and orthopedic surgery on her right knee. SOCIAL HISTORY: Does admit to abuse of methamphetamines as being a former drug user. Denies any smoking or alcohol use. ALLERGIES: INCLUDE BLEACH, TORADOL, SULFA, AND TRAMADOL. CURRENT MEDICATIONS: Negative. She does report that she had been on Valium in the past and was asking for something for anxiety. PHYSICAL EXAMINATION: VITAL SIGNS: Blood pressure 130/60, pulse is 79, respiratory rate of 20, saturating 99% on room air, and temperature 98.1. Weight of 91 pounds. GENERAL: The patient appears to be in no acute distress. She is a little agitated and not very cooperative. The patient is insisting on being given food now and she does not appear to be in any acute distress. The patient does appear to be quite frail and below ideal body weight. LUNGS: Clear. HEART: Regular. ABDOMEN: Soft. She has some mild tenderness suprapubically. EXTREMITIES: Nontender. Nonedematous. GENITOURINARY: At this time has been deferred. LYMPHATICS: The patient has no cervical, inguinal, or axillary lymphadenopathy. DIAGNOSTIC STUDIES: A pelvic ultrasound shows a normal uterus and normal endometrial stripe of 6 mm. The adnexa appeared to be unremarkable with left ovary measuring 3.3 x 2.4 x 3.2 cm with a follicle of 2.8 cm and the right adnexa of 1.9 x 1.5 x 2 cm. Lab work includes a drug screen that is negative for any recorded or any tested drugs including methamphetamines, benzodiazepine, cocaine, oxycodone, and opiates. Urine showing 4+ bacteria, 7 to 10 squamous cells, 11 to 20 white blood cells, and positive nitrites. CMP, normal LFTs, creatinine of 0.77, potassium of 3.8, sodium of 138, and calcium 8.8. Lipase of 32. Serum test was negative. Serum total protein of 7.2, albumin of 3.9. Blood type is O positive. Antibody screen is negative. PT is 14.7, PTT of 29.1. The patient is receiving her second unit of packed red blood cells at this time. ASSESSMENT AND PLAN: The patient is a 43-year-old cooperative female with a reported history of methamphetamine abuse, though has a negative drug screen at this time, presenting with symptomatic anemia and vaginal bleeding that she reports is improving, though it has been a longstanding problem, historically controlled on outpatient Provera. At this time, the patient will continue to receive her blood products. I have started her back on Provera 10 mg twice a day and TXA. In addition, I have written for an internal medicine hospitalist consultation for this unexplained weight loss over the last 3 months and weight loss may be associated with drug abuse, cancer, human immunodeficiency virus. I have ordered a chest x-ray and CT of abdomen and pelvis with contrast and I have ordered an HIV. The patient will be re-evaluated this afternoon by the oncoming physician, Dr. Lino and by the Internal Medicine hospitalist on duty for the day. Job ID: [id number]
[2019-03-21 10:45] LABS: HIV (1/2) Antibody/Antigen Non-Reactive (NonReactive); HIV 1/2 INDEX 0.14 S/CO (<1.00)
[2019-03-21] MEDS ORDERED: ISOVUE-370 76%-LOCM 1 ML ONE (13:11)
--- NOTE | 2019-03-21 14:36 | CT ---
EXAM: Abdomen and pelvic CT scan with contrast: HISTORY: Unexplained weight loss COMPARISON: None FINDINGS: The visualized lung bases are clear. Liver: Small liver cyst. Gallbladder:Unremarkable. Pancreas:Unremarkable Spleen:Unremarkable. Adrenal glands:Unremarkable. Kidneys:No renal calculus or acute obstruction. Small right renal cyst. No evidence for bowel obstruction. No CT evidence for acute appendicitis. The urinary bladder is unremarkable. Unremarkable Minimal free pelvic fluid probable 2.8 cm diameter left ovarian cyst somewhat poorly demonstrated on this study. IMPRESSION: Small liver cyst. Small right renal cyst. Minimal free pelvic fluid. Probable left ovarian 2.8 cm cyst, poorly defined on this study.
--- NOTE | 2019-03-21 14:42 | RAD ---
FRONTAL AND LATERAL IMAGING OF CHEST: DATE: 03/21/2019. COMPARISON: None. HISTORY: COPD, unexplained weight loss. FINDINGS: There is no pneumothorax or pleural fluid and no focal consolidation or alveolar edema. Heart and me diastinal contours are unremarkable. Nodular densities overlie bilateral lung bases, likely on the b asis of nipple shadows. This could be confirmed with followup imaging with nipple markers. IMPRESSION: No focal consolidation or alveolar edema. Please see above discussion. POS: OFF
[2019-03-21] MEDS: Tranexamic Acid 650 MG TAB PO SCH ×2 (15:35→21:04)
--- NOTE | 2019-03-21 15:55 | PDOC.HOSPP ---
- Subjective Encounter Date: 03/21/19 Encounter Time: 15:53 Subjective: CONTINUED GI BLEED, WANTS TO EAT - Objective Vital Signs & Weight: Vital Signs (12 hours) Temp Pulse Pulse Resp BP BP Pulse Ox 03/21/19 11:45 98.5 F 95 22 H 153/88 H 100 03/21/19 08:30 98.1 F 79 20 130/60 99 03/21/19 08:00 98.3 F 70 20 132/63 99 03/21/19 04:59 98.6 F 79 16 135/66 100 03/21/19 04:44 98.8 F 80 16 134/67 100 I&O: 03/20/19 03/21/19 03/22/19 06:59 06:59 06:59 Intake Total 317 0 Balance 317 0 Hospitalist ROS - Medication Medications: Active Medications Generic Name Dose Route Start Last Admin Trade Name Freq PRN Reason Stop Dose Admin Tranexamic Acid 1,300 mg 03/21/19 15:00 03/21/19 15:35 Lysteda PO 03/23/19 09:01 1,300 mg TID LAUREL Administration - Exam General Appearance: ill appearing General - other findings: [place] Eye: PERRL, anicteric sclera ENT: normocephalic atraumatic, no oropharyngeal lesions, moist mucosa Neck: supple, symmetric, no JVD, no thyromegaly, no lymphadenopathy Heart: RRR, no murmur, no gallops, no rubs Respiratory: CTAB, no wheezes, no rales, no ronchi Gastrointestinal: soft, non-tender, non-distended, normal bowel sounds Extremities: no cyanosis, no clubbing, no edema Skin: normal turgor, no lesions, no rashes Neurological: CN's grossly intact, normal sensation to touch, no weakness Musculoskeletal: normal tone, normal strength, no muscle wasting Psychiatric: normal affect, normal behavior, A&O x 3 Hosp A/P (1) Heavy menstrual bleeding Code(s): N92.0 - EXCESSIVE AND FREQUENT MENSTRUATION WITH REGULAR CYCLE Status : Acute Qualifiers: (2) Acute blood loss anemia Code(s): D62 - ACUTE POSTHEMORRHAGIC ANEMIA Status: Acute (3) Blood transfusion during current hospitalisation Code(s): [id number] - Status: Acute - Plan Large menustral bleeding with low Hb: Admit the patient for blood transfusion, follow up on CBC CT abd pelvis with no acute findings OBGYN on board treating patient with Provera and tranexamic acid Plans for ablation? Unintentional weight loss: CT abd and pelvis wnl HIV negative History of Meth abuse. Patient senies any extensive drug abuse. Denies any smoking or alcohol Essentially homeless, she lived with her aunt and now she is out of there Bad teeth and difficulty eating per patient Added ensure to her meals No complains of oss of appetite
[2019-03-21 15:59] LABS: Hemoglobin 9.1 g/dL (12.0-16.0)
--- NOTE | 2019-03-21 17:12 | PDOC.EVN ---
Event Note - Event Note Event Note: States she is still bleeding but I only see spotting on a single pad. Now s/p 2 units PRBCs. H/H at 1600 was 9.08/17. Will do pad count overnight and continue Provera. Will f/u in AM.
[2019-03-21] MEDS ORDERED: Ondansetron ODT 4 MG TAB PO PRN (21:06)
[2019-03-21] MEDS: medroxyPROGESTERone Acetate 5 MG TAB PO SCH (21:40)
[2019-03-21] MEDS: Acetaminophen 325 MG TAB PO PRN (21:40)
[2019-03-22] MEDS ORDERED: Zolpidem Tartrate 5 MG TAB PO PRN (00:17)
[2019-03-22 06:23] LABS: Anion Gap 9 mmol/L (10-20); BUN (Urea Nitrogen) 13 mg/dL (7.0-18.7); Calc. Creatinine Clearance 0 mL/min (70-130); Calcium 8.4 mg/dL (7.8-10.44); Carbon Dioxide 25 mmol/L (22-29); Chloride 107 mmol/L (98-107); Estimated GFR-MDRD 90; Glucose 90 mg/dL (70-105); Potassium 3.8 mmol/L (3.5-5.1); Sodium 137 mmol/L (136-145)
[2019-03-22 06:33] LABS: Hemoglobin 8.7 g/dL (12.0-16.0); Mean Corpuscular HGB CONC 29.5 g/dL (32.0-36.0); Mean Corpuscular Hemoglobin 17.9 pg (27.0-31.0); Mean Corpuscular Volume 60.5 fL (78.0-98.0); Mean Platelet Volume 5.5 fL (7.4-10.4); Platelet Count 592 thou/uL (130-400); RBC Distribution Width 32.8 % (11.5-14.5); Red Blood Cell (RBC) Count 4.85 mill/uL (4.20-5.40); White Blood Cell (WBC) Count 8.7 thou/uL (4.8-10.8)
[2019-03-22] MEDS: medroxyPROGESTERone Acetate 5 MG TAB PO SCH (10:04)
--- NOTE | 2019-03-22 13:29 | PDOC.HOSPP ---
- Subjective Encounter Date: 03/22/19 Encounter Time: 13:27 Subjective: reduced vag bleeding - Objective Vital Signs & Weight: Vital Signs (12 hours) Temp Pulse Resp BP Pulse Ox 03/22/19 11:34 98.3 F 86 20 135/68 03/22/19 07:50 98.5 F 68 20 145/68 H 99 I&O: 03/21/19 03/22/19 03/23/19 06:59 06:59 06:59 Intake Total 317 700 Balance 317 700 Result Diagrams: 03/22/19 05:48 03/22/19 05:48 Hospitalist ROS - Medication Medications: Active Medications Generic Name Dose Route Start Last Admin Trade Name Freq PRN Reason Stop Dose Admin Acetaminophen 650 mg 03/21/19 21:06 03/21/19 21:40 Tylenol PO 650 mg Q4H PRN Administration Headache/Fever or Pain Medroxyprogesterone Acetate 10 mg 03/21/19 21:00 03/22/19 10:04 Provera PO 10 mg BID LAUREL Administration Ondansetron HCl 4 mg 03/21/19 21:06 03/21/19 21:39 Zofran Odt PO 4 mg Q6H PRN Administration Nausea/Vomiting - Exam General Appearance: awake alert Eye: PERRL, anicteric sclera ENT: normocephalic atraumatic, no oropharyngeal lesions Neck: supple, symmetric, no JVD, no thyromegaly Heart: RRR, no murmur, no gallops, no rubs Respiratory: CTAB, no wheezes, no rales, no ronchi Gastrointestinal: soft, non-tender, non-distended, normal bowel sounds Extremities: no cyanosis, no clubbing, no edema Skin: normal turgor, no lesions, no rashes Neurological: CN's grossly intact, normal sensation to touch, no weakness, no focal deficits Musculoskeletal: normal tone, normal strength, no muscle wasting Psychiatric: normal affect, normal behavior, A&O x 3, oriented to person Hosp A/P (1) Heavy menstrual bleeding Code(s): N92.0 - EXCESSIVE AND FREQUENT MENSTRUATION WITH REGULAR CYCLE Status : Acute Qualifiers: (2) Acute blood loss anemia Code(s): D62 - ACUTE POSTHEMORRHAGIC ANEMIA Status: Acute (3) Blood transfusion during current hospitalisation Code(s): [id number] - Status: Acute - Plan Large menustral bleeding with low Hb: Admit the patient for blood transfusion, follow up on CBC: S/P transfusion X 2: Hb now 9.1 CT abd pelvis with no acute findings OBGYN on board treating patient with Provera and tranexamic acid Unintentional weight loss: CT abd and pelvis wnl HIV negative History of Meth abuse. Patient denies any extensive drug abuse. Denies any smoking or alcohol Essentially homeless, she lived with her aunt and now she is out of there Bad teeth and difficulty eating per patient Added ensure to her meals No complains of loss of appetite OB-RESEARCH AND DEVELOPMENT MANAGER discharging patient with Provera and instructions for OP follow up.
[2019-03-22 15:50] VITALS: TEMP 98.7
[2019-03-22 16:09] VITALS: BP 153/77
[2019-03-22] MEDS: Acetaminophen 325 MG TAB PO PRN (16:11)
--- NOTE | 2019-03-23 04:59 | DIS ---
DATE OF ADMISSION: 03/21/2019 DATE OF DISCHARGE: 03/22/2019 ADMITTING DIAGNOSES: 1. Symptomatic anemia. 2. Abnormal uterine bleeding. DISCHARGE DIAGNOSES: 1. Symptomatic anemia. 2. Abnormal uterine bleeding. PROCEDURE PERFORMED: Two units of packed red blood cells. CONSULTATIONS: 1. STAFF PHYSICAL THERAPIST. 2. Internal medicine. HOSPITAL COURSE: The patient is a 43-year-old female, who presented to the emergency room for vaginal bleeding and was transferred from [facility] to [facility]. She reported to have lightheadedness and dizziness and generalized weakness and was admitted for symptomatic anemia. The patient had been seen earlier in the year for a similar problem and was placed on Provera with good results. However, the patient never followed up and when the medication discontinued, she began experiencing similar symptoms again. At the time of hospital admission, the patient report her bleeding was slowing down. Since beginning the Provera here in the hospital, her bleeding has all but resolved, requiring only 1 pad overnight. During her stay, there was a Medicine consult as the patient reported a 30 to 40 pounds weight loss in the last 3 months. Her workup included chest x-ray, CT abdomen and pelvis, HIV. After evaluation, they had little concern of any findings concerning further workup. Today, on hospital day 2, the patient has had stable hemoglobin of 8.7, up from 5.2, bleeding has all but resolved and the patient is being discharged to home on instructions to take medroxyprogesterone the first 10 days of every month. She has been given a 6-month supply given her noncompliance for outpatient followup, but has been encouraged to see [facility]'s [place] in the next 3 to 4 weeks. Of note, an endometrial biopsy was performed in July of this year and was noted to be free of any hyperplasia or malignancy. The patient is also being discharged home with iron to be taken daily for at least the next 6 months. Again, followup has been stressed. Job ID: [id number]
== END 2019-03-22 16:50 | disposition home or self-care (01) ==
LOC: ERS 00:17 → 3SE 01:00
PROVIDERS: ADMIT Obstetrics & Gynecology; ATTEND Obstetrics & Gynecology
DX: D62 Acute posthemorrhagic anemia (principal); N92.0 Excessive and frequent menstruation with regular cycle; F32.9 Major depressive disorder, single episode, unspecified; F41.9 Anxiety disorder, unspecified; J44.9 Chronic obstructive pulmonary disease, unspecified; F15.11 Other stimulant abuse, in remission; N83.202 Unspecified ovarian cyst, left side; K76.89 Other specified diseases of liver; Q61.01 Congenital single renal cyst; Z88.2 Allergy status to sulfonamides; Z88.6 Allergy status to analgesic agent; Z91.048 Other nonmedicinal substance allergy status
CPT/HCPCS: 36415; 36430; 71046; 74177; 76856; 80048; 80307; 84703; 85014; 85018; 85027; 85610; 85730; 86850; 86900; 86901; 87389; 96374; G0378; J2405; P9016; Q0162; Q9966

== ENCOUNTER 2019-04-09 15:23 | Inpatient (IN) | payer SELFPAY ==
[2019-04-09 16:54] LABS: Hemoglobin 6.7 g/dL (12.0-16.0); Mean Corpuscular Hemoglobin 18.2 pg (27.0-31.0); Mean Corpuscular Volume 62.8 fL (78.0-98.0); Mean Platelet Volume 5.1 fL (7.4-10.4); Platelet Count 551 thou/uL (130-400); RBC Distribution Width 31.3 % (11.5-14.5); Red Blood Cell (RBC) Count 3.69 mill/uL (4.20-5.40); White Blood Cell (WBC) Count 5.5 thou/uL (4.8-10.8)
[2019-04-09 17:19] LABS: Anisocytosis MARKED = >30 cells (100X) (0-5/hpf); Band 5 % (5-11); Eosinophils 7 % (0-10); Hypochromia MODERATE=16-30 cells (100X) (0-5/hpf); Lymphocytes 27 % (21-51); MDiff Complete? YES; Microcytosis MODERATE=15-30 cells (100X) (0-5/hpf); Monocytes 10 % (0-10); Neutrophil 49 % (42-75); Ovalocytes SLIGHT = 2-5 cells (100X) (0-1/hpf); Platelet Morphology Comment Appears Increased; Poikilocytosis MODERATE=16-30 cells (100X) (0-5/hpf); Polychromasia MODERATE = 3-4 cells (100X) (0-2/hpf); Schistocytes SLIGHT = 2-5 cells (100X) (0-1/hpf); Spherocytes SLIGHT = 1-5 cells (100X) (None Seen); Target Cells SLIGHT = 2-5 cells (100X) (0-1/hpf); Tear Drops SLIGHT = 2-5 cells (100X) (0-1/hpf)
[2019-04-09] MEDS ORDERED: Bisacodyl 5 MG TAB PO PRN (18:32)
[2019-04-09] MEDS ORDERED: Acetaminophen 650 MG Suppository PR PRN (18:32)
--- NOTE | 2019-04-09 19:16 | HP ---
CHIEF COMPLAINT: Generalized weakness. HISTORY OF PRESENT ILLNESS: Ms. Lacy is a pleasant 43-year-old lady, who was seen at [facility] following transfer from the emergency room at [place]. She was hospitalized at this facility from April 02 to of this year for chronic anemia secondary to menorrhagia. She underwent endometrial ablation on April 04. She was discharged following the procedure. She reports that she has had some shortness of breath even prior to discharge. She also reports generalized weakness that was present prior to discharge. She also reports pain over the left side of her chest with palpation. She denies any fevers or chills. She denies any cough. She denies any nausea or vomiting. She was reportedly taken to the emergency room at [place] for homicidal ideation. She was sent here for [facility] eval. She was also found to be anemic. Emergency room physician discussed her case with DECONTAMINATOR on-call. They reported that she needs a hysterectomy, but that needs to be followed up as outpatient. There was no indication for beginning intervention at this time. Emergency room physician ordered packed RBC transfusion. He has referred the patient to the Hospitalist Service for admission. REVIEW OF SYSTEMS: All systems were reviewed and found to be negative except for the pertinent positives mentioned above. PAST MEDICAL HISTORY: Iron deficiency anemia, menorrhagia, chronic bronchitis, cysts on the ovary, kidney, and liver. PAST SURGICAL HISTORY: Right knee surgery, tubal ligation, uterine ablation. PSYCHIATRIC HISTORY: Anxiety, depression, suicide attempt. FAMILY HISTORY: Heart problems in her son, heart murmur in her daughter. SOCIAL HISTORY: The patient denies tobacco or alcohol use. She reports methamphetamine use, last use was two days ago. ALLERGIES: BLEACH, SULFA, AND TORADOL. CURRENT MEDICATIONS: None. PHYSICAL EXAMINATION: GENERAL: Ms. Lacy is awake and alert, not in acute distress. VITAL SIGNS: Blood pressure is 146/86, pulse 98, respiratory rate 16, and oxygen saturation 100% on room air. She is afebrile. BODY HABITUS: She appears malnourished. EYES: No scleral icterus. No conjunctival pallor. ENT: Moist mucosal membranes. No oropharyngeal erythema or exudates. NECK: Supple, nontender. Trachea is midline. RESPIRATORY: Accessory muscles of breathing are not active. Chest wall movements are symmetric bilaterally. LUNGS: Clear to auscultation without wheezes, rhonchi, or crepitations. CARDIOVASCULAR: S1 and S2 are heard, regular. Peripheral pulses palpable. No carotid bruit. No pericardial rub. ABDOMEN: Soft, nontender. Bowel sounds heard. No hepatomegaly. No splenomegaly. NEUROLOGIC: Cranial nerves 2 through 12 are intact. MUSCULOSKELETAL: Power is 5/5 in all 4 extremities. SKIN: No rashes. LYMPHATIC: No cervical lymphadenopathy. PSYCHIATRIC: Normal mood, normal affect. The patient is oriented to person, place, and time. LABORATORY DATA: Ms. Lacy's labs and investigations were reviewed. I reviewed her chest x-ray, which does not show any pulmonary infiltrates. She has normal white count, microcytic anemia with hemoglobin 6.7, elevated platelet count of 551,000. She has an unremarkable comprehensive metabolic profile. ASSESSMENT AND PLAN: Ms. Lacy is a pleasant 43-year-old lady, who was seen at [facility] on March 2019. Her problem list includes: 1. Symptomatic anemia: Ms. Lacy is presenting with symptomatic anemia. She will be transfused packed RBCs. Hemoglobin will be rechecked. DECONTAMINATOR Service wants to follow up with her as outpatient for hysterectomy. 2. Chest pain: She has reproducible left chest wall tenderness. She denies any history of trauma. We will check rib x-rays. 3. Homicidal ideation: Once the patient is medically cleared, she will have [facility] re-eval. They reportedly express the need for her to be transferred to [place]. 4. Methamphetamine use: The patient has been counseled regarding cessation of recreational drugs. LEVEL OF RISK: Moderate. LEVEL OF COMPLEXITY: Moderate. Job ID: [id number]
--- NOTE | 2019-04-09 19:34 | RAD ---
2 views left RIBS: 04/09/2019 HISTORY: Pain FINDINGS: No displaced fracture noted. IMPRESSION: No acute findings.
[2019-04-09 21:35] VITALS: BMI 13.9
[2019-04-09] MEDS ORDERED: Diazepam 5 MG TAB PO SCH (22:00)
[2019-04-09] MEDS: Acetaminophen 325 MG TAB PO PRN (22:13)
[2019-04-10 05:40] LABS: Anion Gap 9 mmol/L (10-20); BUN (Urea Nitrogen) 16 mg/dL (7.0-18.7); Calc. Creatinine Clearance 70 mL/min (70-130); Calcium 8.5 mg/dL (7.8-10.44); Carbon Dioxide 26 mmol/L (22-29); Chloride 107 mmol/L (98-107); Estimated GFR-MDRD Greater than 90; Glucose 86 mg/dL (70-105); Potassium 4.1 mmol/L (3.5-5.1); Sodium 138 mmol/L (136-145)
[2019-04-10 05:47] LABS: Band 4 % (5-11); Elliptocytes SLIGHT = 2-5 cells (100X) (0-1/hpf); Eosinophils 8 % (0-10); Hemoglobin 8.6 g/dL (12.0-16.0); Hypochromia MODERATE=16-30 cells (100X) (0-5/hpf); Lymphocytes 35 % (21-51); MDiff Complete? YES; Mean Corpuscular HGB CONC 30.4 g/dL (32.0-36.0); Mean Corpuscular Hemoglobin 20.4 pg (27.0-31.0); Mean Corpuscular Volume 67.1 fL (78.0-98.0); Microcytosis MODERATE=15-30 cells (100X) (0-5/hpf); Monocytes 12 % (0-10); Myelocyte 1 % (0-0); Neutrophil 38 % (42-75); Platelet Count 524 thou/uL (130-400); Platelet Morphology Comment Appears Increased; RBC Distribution Width 31.2 % (11.5-14.5); Reactive Lymphocytes 1 % (0-10); White Blood Cell (WBC) Count 6.4 thou/uL (4.8-10.8)
[2019-04-10] MEDS: Ferrous Sulfate 325 MG TAB PO SCH (08:37)
[2019-04-10] MEDS: Diazepam 5 MG TAB PO SCH ×2 (08:37→20:32)
[2019-04-10 09:29] LABS: Troponin I Less than 0.010 ng/mL (< 0.028)
[2019-04-10] MEDS: Acetaminophen 325 MG TAB PO PRN (12:44)
[2019-04-10 12:50] LABS: Troponin I Less than 0.010 ng/mL (< 0.028)
[2019-04-10] MEDS ORDERED: ISOVUE-370 76%-LOCM 1 ML ONE (12:53)
--- NOTE | 2019-04-10 15:38 | PDOC.HOSPP ---
- Subjective Encounter Date: 04/10/19 Encounter Time: 09:20 Subjective: Pt seen for follow up re: chest pain. c/o abdo pain as well, lower abdo, sharp , non radiating. No vomiting or diarrhea. - Objective Vital Signs & Weight: Vital Signs (12 hours) Temp Pulse Resp BP Pulse Ox 04/10/19 12:29 97.7 F 108 H 18 152/82 H 18 L 04/10/19 08:00 98.0 F 98 18 134/79 99 Weight Weight 91 lb 14.924 oz I&O: 04/09/19 04/10/19 04/11/19 06:59 06:59 06:59 Intake Total 1700 Balance 1700 Result Diagrams: 04/10/19 05:13 04/10/19 05:13 Additional Labs: Labs and MARs reviewed by me. Hospitalist ROS - Review of Systems Cardiovascular: reports: chest pain. denies: palpitations, orthopnea, paroxysmal noc. dyspnea, edema, light headedness Gastrointestinal: reports: abdominal pain. denies: nausea, vomiting, diarrhea, constipation, melena, hematochezia - Medication Medications: Active Medications Generic Name Dose Route Start Last Admin Trade Name Freq PRN Reason Stop Dose Admin Acetaminophen 650 mg 04/09/19 18:32 04/10/19 12:44 Tylenol PO 650 mg Q4H PRN Administration Headache/Fever/Mild Pain (1-3) Diazepam 5 mg 04/10/19 09:00 04/10/19 08:37 Valium PO 5 mg DAILY LAUREL Administration Ferrous Sulfate 325 mg 04/10/19 09:00 04/10/19 08:37 Feosol PO 325 mg DAILY LAUREL Administration - Exam General Appearance: NAD Eye: anicteric sclera ENT: moist mucosa Neck: supple, no JVD Heart: RRR, no rubs Respiratory: CTAB, no wheezes, no rales, no ronchi Gastrointestinal: soft, non-tender, normal bowel sounds, no palpable masses Skin: no rashes Musculoskeletal - other findings: reproducible tenderness left chest wall Psychiatric: normal affect, normal behavior Hosp A/P (1) Chest pain Code(s): R07.9 - CHEST PAIN, UNSPECIFIED Status: Acute (2) Abdominal pain Code(s): R10.9 - UNSPECIFIED ABDOMINAL PAIN Status: Acute (3) Acute blood loss anemia Code(s): D62 - ACUTE POSTHEMORRHAGIC ANEMIA Status: Acute (4) Homicidal ideation Code(s): R45.850 - HOMICIDAL IDEATIONS Status: Acute - Plan Troponins normal, EKG unremarkable. Elevated d-dimer, check CTA chest. Pt also awaiting CT ando/pelvis for abdo pain, nil acute on abdo exam. Hemoglobin improved to 8.6 after pRBC transfusion. Will clear medically if above tests are normal.
[2019-04-10] MEDS: Ondansetron PF 4 MG/2 ML Vial IVP PRN (16:22)
--- NOTE | 2019-04-10 17:59 | CT ---
CT ANGIOGRAM CHEST: Date: 04-10-19 History: Chest pain, assess for pulmonary embolism. Technique: Axial CT imaging at 2.5 mm intervals through the chest with IV contrast. Coronal and obliq ue sagittal 3D reformatted imaging obtained. FINDINGS: There is no lymphadenopathy noted in the chest. There is no pleural, paracardial or mediastinal fluid seen. No filling defect is seen within the pulmonary arterial diaphyseal to suggest the presence of pulmona ry arterial embolism. No pneumothorax noted. There is a focal area of minimal peripheral ground glass opacity within the superior lateral aspect of the left lower lobe on axial image 17. The lung parenc hyma is grossly unremarkable otherwise. No acute osseous abnormality is noted. IMPRESSION: Minimal focal area of ground glass opacity within the superior lateral aspect of the superior segment left lower lobe. This may represent a focal area of inflammatory/infectious pneumonitis. No evidence for pulmonary arterial embolism. POS: OFF
--- NOTE | 2019-04-10 18:08 | CT ---
CT ABDOMEN AND PELVIS: Date: 04-10-19 Comparison: None. History: Pain. Technique: Axial CT imaging at 5 mm intervals from lung bases through pubic symphysis with IV contras t. Coronal reformatted imaging obtained. FINDINGS: The visualized lung bases are unremarkable. No free intraperitoneal air is seen. There is no suspicious focal liver lesion identified. The gallbladder is contracted. There is a tiny hypodensity within the right lobe of the liver on image 26, too small to characterize. The spleen, pa ncreas, and adrenal glands appear grossly unremarkable. Neither kidney appears obstructed. There is a low density lesion within the lower pole of the left kidney measuring 8 mm in transverse d imension, likely representing a small cyst. There is significant fluid within the endometrial canal. Uterus and ovaries are not well assessed via CT. The limited assessment of the bowel demonstrates no evidence for large or small bowel obstructio n. There is significant stool within the colon. The appendix is not discretely visualized. No right l ower quadrant inflammatory change is seen. The stomach is markedly dilated and contains a large amount of debris. The debris filled stomach rhonda ures at least 21 cm in craniocaudal dimension, 20 cm in transverse dimension and 6 cm in AP dimension . The vascular structures of the abdomen and pelvis appear patent. No discrete lymphadenopathy is noted within the abdomen or pelvis. The osseous structures are unremarkable. IMPRESSION: The stomach is markedly distended and completely filled with a large amount of debris. No free intrap eritoneal air. Gastric outlet obstruction cannot be excluded. Of note, the distention of the stomach is new when compared to a CT performed 03-21-19. POS: OFF
[2019-04-11 06:07] LABS: Anion Gap 7 mmol/L (10-20); BUN (Urea Nitrogen) 17 mg/dL (7.0-18.7); Calc. Creatinine Clearance 67 mL/min (70-130); Calcium 8.7 mg/dL (7.8-10.44); Carbon Dioxide 27 mmol/L (22-29); Chloride 107 mmol/L (98-107); Estimated GFR-MDRD 90; Glucose 88 mg/dL (70-105); Potassium 3.9 mmol/L (3.5-5.1); Sodium 137 mmol/L (136-145)
[2019-04-11 06:28] LABS: Band 2 % (5-11); Hemoglobin 8.8 g/dL (12.0-16.0); Hypochromia SLIGHT = 6-15 cells (100X) (0-5/hpf); Lymphocytes 17 % (21-51); MDiff Complete? YES; Mean Corpuscular HGB CONC 30.5 g/dL (32.0-36.0); Mean Corpuscular Hemoglobin 20.3 pg (27.0-31.0); Mean Corpuscular Volume 66.4 fL (78.0-98.0); Mean Platelet Volume 5.4 fL (7.4-10.4); Microcytosis SLIGHT = 6-15 cells (100X) (0-5/hpf); Monocytes 16 % (0-10); Neutrophil 65 % (42-75); Platelet Count 607 thou/uL (130-400); Platelet Morphology Comment Appears Increased; RBC Distribution Width 31.5 % (11.5-14.5); Red Blood Cell (RBC) Count 4.35 mill/uL (4.20-5.40); White Blood Cell (WBC) Count 7.8 thou/uL (4.8-10.8)
[2019-04-11] MEDS: Ondansetron PF 4 MG/2 ML Vial IVP PRN ×2 (08:39→15:08)
[2019-04-11] MEDS: Diazepam 5 MG TAB PO SCH ×2 (08:39→23:45)
[2019-04-11] MEDS: Ferrous Sulfate 325 MG TAB PO SCH (08:59)
--- NOTE | 2019-04-11 11:12 | CON ---
DATE OF CONSULTATION: 04/11/2019 CHIEF COMPLAINT: Abdominal pain and anemia. HISTORY OF PRESENT ILLNESS: Ms. Lacy is a 43-year-old woman, who was in the hospital recently for menorrhagia and underwent uterine ablation. She has had chronic anemia and required blood transfusion back in July 2017 and 2 units transfused in March 21, 2019. She came back to the emergency room on 04/09/2019 two days ago with weakness and reported homicidal ideation. I did not go into the psychiatric and the things with her that is per the chart. She was noted to have again severe anemia and her hemoglobin on presentation was 6.8. She was given 1 unit transfusion and her hemoglobin improved to 8.8. Her discharge hemoglobin globin was 7.4, so this is not a significant difference from when she was discharged. Last night, she complained of severe abdominal pain and a CT scan performed that showed distention of the stomach and stool retained in the colon, and GI was consulted to evaluate this further. She reports chronic lower abdominal aching pain on and off over the last several months. She has had some nausea with that. She has a bowel movement 2 or 3 times per day, which are normal stools, and she feels like she empties completely. She has had no blood in the stool. No red stools or black stools. She does report a large weight loss over the last several months. She states she has lost from 140 pounds to 92 pounds. She has been eating well with a good appetite, but has just been losing weight. She has had no fever with this. Her last use of methamphetamine was 3 days ago. Again, she had CT scan showing distention of the stomach with some food particles. She states that the CT was done an hour or two after having eaten. She has not had vomiting as component of her symptoms chronically. PAST MEDICAL HISTORY: Anxiety, depression, menorrhagia with chronic anemia, chronic bronchitis, ovarian cyst, previously small cysts noted in the kidney and liver. PAST SURGICAL HISTORY: Arthroscopic knee surgery, tubal ligation, uterine ablation. FAMILY HISTORY: Negative for GI malignancy. SOCIAL HISTORY: No alcohol or tobacco. Last methamphetamine use was 3 days ago. OUTPATIENT MEDICATIONS: None. ALLERGIES: INCLUDE SULFA, TORADOL, BLEACH. CURRENT INPATIENT MEDICATIONS: Diazepam, ferrous sulfate. REVIEW OF SYSTEMS: Negative x10 systems reviewed, except as stated in the history of present illness. PHYSICAL EXAMINATION: VITAL SIGNS: Temperature 98.0, pulse 101, blood pressure 144/81. GENERAL: She is in no acute distress. Alert and oriented x3. HEENT: Eyes have no scleral icterus. Oropharynx is clear without lesions. No cervical or supraclavicular lymphadenopathy. LUNGS: Clear to auscultation bilaterally. HEART: Regular rate and rhythm without murmur. ABDOMEN: Soft. She is very tender in the lower abdomen; however, she does not have significant guarding to go along with that. Bowel sounds are present. EXTREMITIES: No lower extremity edema. NEUROLOGIC: Cranial nerves are grossly intact. LABORATORY DATA: White blood cell count 6.4, hemoglobin 8.8, platelets 524. INR 1.2, creatinine 0.7, bilirubin 0.6, AST 22, ALT 19, alkaline phosphatase 80, albumin 4.2. IMPRESSION: 1. Chronic lower abdominal pain. She said this sometime radiates up toward the epigastric region as well. She has had some chronic nausea with this and the CT scan did show her stomach to be distended with food particles; however, CT was done not long after she had eaten. Question is if she has reason for gastric outlet obstruction or ulcer. Given the chronic pain and nausea and marked distention in the stomach, it is reasonable to plan endoscopy to rule out a pyloric channel ulcer or other neoplastic process. I suspect her lower abdominal pain is more of a functional issue. The CT scan also showed significant amount of stool throughout her colon and she could be having incomplete emptying with her bowel movements with constipation contributing to her abdominal pain. 2. Weight loss. She reports she has lost from 140 pounds down to 92 pounds over the last several months. She has been using methamphetamine and has had significant psychiatric issues as well that could have been contributing to this weight loss. Again, we will reassess her stomach with endoscopy. 3. Iron deficiency anemia chronically secondary to menorrhagia. There has been no evidence of overt GI bleeding. RECOMMENDATIONS: 1. Clear liquid diet today. 2. EGD tomorrow. I would prefer to give her time for stomach to empty as much as it can prior to endoscopy. 3. Proton pump inhibitor. 4. If the endoscopy is normal, then I would recommend starting a daily osmotic laxative for her. Job ID: [id number]
--- NOTE | 2019-04-11 15:01 | PDOC.HOSPP ---
- Subjective Encounter Date: 04/11/19 Encounter Time: 09:40 Subjective: Pt seen for followup re: gastric outlet obstruction. c/o abdo pain, chest pain is better. - Objective Vital Signs & Weight: Weight Admit Weight 91 lb 14.924 oz Weight 91 lb 14.924 oz I&O: 04/10/19 04/11/19 04/12/19 06:59 06:59 06:59 Intake Total 2300 Balance 2300 Result Diagrams: 04/11/19 05:00 04/11/19 05:00 Additional Labs: Labs and MARs reviewed by wa Hospitalist ROS - Review of Systems Cardiovascular: denies: chest pain, palpitations, orthopnea, paroxysmal noc. dyspnea, edema, light headedness Gastrointestinal: reports: abdominal pain. denies: nausea, vomiting, diarrhea, constipation, melena, hematochezia - Medication Medications: Active Medications Generic Name Dose Route Start Last Admin Trade Name Freq PRN Reason Stop Dose Admin Acetaminophen 650 mg 04/09/19 18:32 04/10/19 12:44 Tylenol PO 650 mg Q4H PRN Administration Headache/Fever/Mild Pain (1-3) Diazepam 5 mg 04/10/19 09:00 04/11/19 08:39 Valium PO 5 mg DAILY LAURLE Administration Diazepam 10 mg 04/10/19 21:00 04/10/19 20:32 Valium PO 10 mg HS LAUREL Administration Ferrous Sulfate 325 mg 04/10/19 09:00 04/11/19 08:59 Feosol PO 325 mg DAILY LAUREL Administration Ondansetron HCl 4 mg 04/10/19 16:10 04/11/19 08:39 Zofran IVP 4 mg Q6H PRN Administration Nausea/Vomiting - Exam General - other findings: Malnourished Eye: anicteric sclera ENT: moist mucosa Neck: supple Heart: RRR Respiratory: CTAB Gastrointestinal: soft, non-tender Neurological: no weakness Psychiatric: normal affect, normal behavior Hosp A/P (1) Gastric outlet obstruction Code(s): K31.1 - ADULT HYPERTROPHIC PYLORIC STENOSIS Status: Acute (2) Abdominal pain Code(s): R10.9 - UNSPECIFIED ABDOMINAL PAIN Status: Acute (3) Acute blood loss anemia Code(s): D62 - ACUTE POSTHEMORRHAGIC ANEMIA Status: Acute (4) Homicidal ideation Code(s): R45.850 - HOMICIDAL IDEATIONS Status: Acute (5) Chest pain Code(s): R07.9 - CHEST PAIN, UNSPECIFIED Status: Resolved - Plan out of bed/ambulate Consult GI re: GOO. Hemoglobin stable, 8.8 today.
[2019-04-11] MEDS: Acetaminophen 325 MG TAB PO PRN (20:50)
[2019-04-12] MEDS ORDERED: Nitroglycerin 0.4 MG TAB (25 Tab Bottle) ONE (04:41)
[2019-04-12] MEDS ORDERED: Acetaminophen 1,000 MG in Premix Bag 1 BAG IVPB SCH (05:15)
[2019-04-12 05:23] LABS: #Basophils 0.1 thou/uL (0.0-0.2); #Eosinphils 0.4 thou/uL (0.0-0.7); #Lymphocytes 2.2 thou/uL (1.20-3.40); #Monocytes 0.8 thou/uL (0.11-0.59); #Neutrophils 2.6 thou/uL (1.40-6.50); %Basophils 2.1 % (0.0-1.0); %Eosinophils 6.9 % (0.0-10.0); %Lymphocytes 36.5 % (21.0-51.0); %Monocytes 12.4 % (0.0-10.0); %Neutrophils 42.1 % (42.0-75.0); Hemoglobin 9.4 g/dL (12.0-16.0); Mean Corpuscular HGB CONC 29.6 g/dL (32.0-36.0); Mean Corpuscular Hemoglobin 19.9 pg (27.0-31.0); Mean Corpuscular Volume 67.2 fL (78.0-98.0); Mean Platelet Volume 5.2 fL (7.4-10.4); Platelet Count 614 thou/uL (130-400); RBC Distribution Width 31.6 % (11.5-14.5); Red Blood Cell (RBC) Count 4.71 mill/uL (4.20-5.40); White Blood Cell (WBC) Count 6.1 thou/uL (4.8-10.8)
[2019-04-12 05:44] LABS: Anion Gap 10 mmol/L (10-20); BUN (Urea Nitrogen) 10 mg/dL (7.0-18.7); Calc. Creatinine Clearance 62 mL/min (70-130); Calcium 9.2 mg/dL (7.8-10.44); Carbon Dioxide 27 mmol/L (22-29); Chloride 104 mmol/L (98-107); Estimated GFR-MDRD 82; Glucose 96 mg/dL (70-105); Potassium 4.3 mmol/L (3.5-5.1); Sodium 137 mmol/L (136-145)
[2019-04-12] MEDS: Diazepam 5 MG TAB PO SCH ×2 (08:21→23:15)
[2019-04-12] MEDS: Ferrous Sulfate 325 MG TAB PO SCH (08:21)
[2019-04-12] MEDS ORDERED: Morphine 2 MG/ML SYRINGE SLOW IVP SCH (10:45)
[2019-04-12] MEDS: Acetaminophen 325 MG TAB PO PRN (14:14)
[2019-04-12] MEDS ORDERED: Fentanyl 100 MCG/2 ML VIAL ONE (18:13)
[2019-04-12] MEDS ORDERED: Promethazine HCl 25 MG/ML VIAL IM PRN (18:44)
[2019-04-12] MEDS ORDERED: Promethazine HCl 25 MG/ML VIAL SLOW IVP PRN (18:44)
[2019-04-12] MEDS ORDERED: Ondansetron HCl/PF 4 MG/2 ML Vial IVP PRN (18:44)
[2019-04-12] MEDS ORDERED: Succinylcholine Chloride 20 MG/ML 10 ml SYRINGE FS ONE (21:25)
[2019-04-12] MEDS ORDERED: PROPOFOL 200 MG/20 ML VIAL ONE (21:25)
[2019-04-12] MEDS ORDERED: ePHEDrine 50 MG/ML VIAL ONE (21:25)
[2019-04-12] MEDS ORDERED: Lidocaine 1% PF 5 ML VIAL ONE (21:25)
[2019-04-13] MEDS: Diazepam 5 MG TAB PO SCH ×2 (08:56→22:39)
[2019-04-13] MEDS: Ferrous Sulfate 325 MG TAB PO SCH (08:56)
[2019-04-13] MEDS: Acetaminophen 325 MG TAB PO PRN ×3 (08:58→22:39)
--- NOTE | 2019-04-13 09:02 | OP ---
DATE OF PROCEDURE: 04/12/2019 PREPROCEDURE DIAGNOSES: 1. CT with distended stomach. 2. Weight loss. 3. Chronic anemia related to menorrhagia status post endometrial ablation. POSTPROCEDURE DIAGNOSES: 1. Normal EGD. Biopsy from small bowel and duodenum taken, but the duodenal mucosa appears normal. 2. Heavy methamphetamine use, most recent use 4 days ago, likely cause of weight loss. 3. Previous colonoscopy 4 or 5 years ago, she thinks in [place]. RECOMMENDATIONS: 1. PPI therapy. 2. Discharge home. 3. Consider drug rehab. 4. Stop doing meth. ANESTHESIA: TIVA. PROCEDURE IN DETAIL: The patient was informed of the risks, benefits, and possible complications of endoscopy including perforation, bleeding, reaction to medication, and aspiration, the reason for the procedure is that she had a CAT scan suggestive of gastric outlet obstruction possibly and significant weight loss, iron deficiency. She agreed and signed informed consent. She is brought to endoscopy suite, where she was sedated in gradual fashion. Once she was comfortable, bite block was placed inside her orifice. The endoscope was advanced through the esophagus, stomach, and second and third portions of the duodenum and slowly removed. The stomach, esophagus, and duodenum were all normal. Biopsies taken from the 2nd and 3rd portions. Retroflexed views were normal. The scope was removed. The patient was brought to recovery room in stable condition. Job ID: [id number]
--- NOTE | 2019-04-13 17:51 | PDOC.HOSPP ---
- Subjective Encounter Date: 04/13/19 Encounter Time: 17:50 Subjective: Pt seen for followup re: homicidal ideation. No complaints today. - Objective Vital Signs & Weight: Vital Signs (12 hours) Temp Pulse Resp BP Pulse Ox 04/13/19 08:00 98 F 79 18 125/79 96 Weight Admit Weight 91 lb 14.924 oz Weight 91 lb 14.924 oz Result Diagrams: 04/12/19 05:05 04/12/19 05:05 Additional Labs: Labs and MARs reviewed by mi Hospitalist ROS - Review of Systems Cardiovascular: denies: chest pain, palpitations, orthopnea, paroxysmal noc. dyspnea, edema, light headedness Gastrointestinal: denies: nausea, vomiting, abdominal pain, diarrhea, constipation, melena, hematochezia - Medication Medications: Active Medications Generic Name Dose Route Start Last Admin Trade Name Freq PRN Reason Stop Dose Admin Acetaminophen 650 mg 04/09/19 18:32 04/13/19 08:58 Tylenol PO 650 mg Q4H PRN Administration Headache/Fever/Mild Pain (1-3) Diazepam 5 mg 04/10/19 09:00 04/13/19 08:56 Valium PO 5 mg DAILY LAUREL Administration Diazepam 10 mg 04/10/19 21:00 04/12/19 23:15 Valium PO 10 mg HS LAUREL Administration Ferrous Sulfate 325 mg 04/10/19 09:00 04/13/19 08:56 Feosol PO 325 mg DAILY LAUREL Administration Ondansetron HCl 4 mg 04/10/19 16:10 04/11/19 15:08 Zofran IVP 4 mg Q6H PRN Administration Nausea/Vomiting - Exam General - other findings: Malnourished Eye: anicteric sclera ENT: moist mucosa Neck: supple Heart: RRR Respiratory: CTAB Gastrointestinal: soft Extremities: no clubbing Neurological: no weakness Musculoskeletal: normal tone, normal strength Psychiatric: normal affect Hosp A/P (1) Homicidal ideation Code(s): R45.850 - HOMICIDAL IDEATIONS Status: Acute (2) Acute blood loss anemia Code(s): D62 - ACUTE POSTHEMORRHAGIC ANEMIA Status: Acute (3) Homicidal ideation Code(s): R45.850 - HOMICIDAL IDEATIONS Status: Acute (4) Chest pain Code(s): R07.9 - CHEST PAIN, UNSPECIFIED Status: Resolved (5) Abdominal pain Code(s): R10.9 - UNSPECIFIED ABDOMINAL PAIN Status: Resolved (6) Gastric outlet obstruction Code(s): K31.1 - ADULT HYPERTROPHIC PYLORIC STENOSIS Status: Ruled-out - Plan out of bed/ambulate Nil acute on EGD. Hb stable. Pt to followup with [facility] as outpatient. Awaiting [facility] eval re: homicidal ideation.
[2019-04-13 19:57] VITALS: BP 134/80; TEMP 97.9
--- NOTE | 2019-04-13 22:27 | PDOC.EVN ---
Event Note - Event Note Event Note: Spoke with Dr. Anderson at [facility]. Pt has been accepted for transfer tonight. [facility] de[facility] notified for transport. Notified nurse of clearance for transfer.
--- NOTE | 2019-04-15 09:46 | PQF ---
LEMON, Thursday YONATAN GREEN [id number] CLINICAL DOCUMENTATION CLARIFICATION FORM: POST DISCHARGE Addendum to original discharge summary date: ____ Late entry note date: __ Date:04-15-2019 ATTN: Yonatan Rene Please exercise your independent, professional judgment in responding to the clarification form. Clinical indicators are provided on the bottom of this form for your review Based on your clinical knowledge kindly specify what the patient actually has. Please check appropriate box(s): [ x ] Protein Calorie Malnutrition: [ ] Mild [ ] Moderate [ x ] Severe [ ] Other Malnutrition (please specify) __ [ ] Other diagnosis please specify: [ ] Unable to determine CLINICAL INDICATORS: H&P p1 04/09-She reports methamphetamine use Hospitalist PN p3 04/11-Physical Exam : General : Malnorished Food and Nutritional Services Assessment 04/11-"-35% wt loss x 3 months per pt report during recent admit" Food and Nutritional Services Assessment 04/11-Observed moderate muscle wasting to biceps/triceps Food and Nutritional Services Assessment 04/11-BMI 14 Op note p1 04/12-Heavy methamphetamine use, most recent use 4 days ago, likely cause of weight lose RISK FACTORS: H&P p1 04/09-Iron Deficiency Anemia H&P p1 04/09-Chronic Bronchitis H&P p1 04/09-Anxiety, depression TREATMENT: Celine Rock, Registered Dietitian 04/11-Dietary consult Food and Nutritional Services Assessment 04/11-Monitoring weight change Moderate Malnutrition (in acute illness) Energy Intake: <75% of estimated energy requirement for > 7 days Weight Loss: 1-2%/1 week; 5%/ 1 month; 7.5%/3 months Other: mild body fat loss; mild muscle mass loss; mild fluid accumulation; Severe Malnutrition (in acute illness) Energy Intake: < 50% of estimated energy requirement for > 5 days Weight Loss: >1-2%/1 week; >5%/1 month; >7.5%/3 months Other: moderate body fat loss; moderate muscle mass loss; moderate- severe fluid accumulation; measurably reduced facilities specialist strength Moderate Malnutrition (in chronic illness) Energy Intake: <75% of estimated energy requirement for >1 month Weight Loss: 5%/1 month; 7.5%/3 months; 10%/6 months; 20%/1 year Other: mild body fat loss; mild muscle mass loss; mild fluid accumulation Severe Malnutrition (in chronic illness) Energy Intake: <75% of estimated energy requirement for >1 month Weight Loss: >5%/1 month; >7.5%/3 months; >10%/6 months; >20%/1 year Other: severe body fat loss; severe muscle mass loss; severe fluid accumulation ; measurably reduced facilities specialist strength (This form is maintained as a part of the permanent medical record) 2014 [employer]. All Rights Reserved Tereza [email or web address] [not provided] MTDD
--- NOTE | 2019-04-15 10:23 | DIS ---
DATE OF ADMISSION: 04/09/2019 DATE OF DISCHARGE: 04/14/2019 PRIMARY CARE PROVIDER: None. DISCHARGE DIAGNOSES: 1. Symptomatic anemia. 2. Homicidal ideation. 3. Chest pain, most likely musculoskeletal. 4. Abdominal pain. CONSULTATIONS DURING THIS HOSPITALIZATION: Gastroenterology, Dr. Beth. CONDITION OF PATIENT ON THE DAY OF DISCHARGE: Stable. I assessed Ms. Lacy on 04/13/2019. Please refer to my daily hospitalist progress note for details regarding this [id number] encounter. FOLLOWUP APPOINTMENTS: The patient is advised to follow up with Gastroenterology Service in 2 weeks' time and with primary care provider in 3 days' time. She is also advised to follow up with Gynecology Service as outpatient for menorrhagia. HOSPITAL COURSE: Ms. Lacy is a pleasant 43-year-old lady who was admitted to [facility] on 04/09/2019, for symptomatic anemia and homicidal ideation. She received packed RBC transfusion, with improvement in her hemoglobin. She complained of chest pain and abdominal pain. She had left-sided reproducible chest wall tenderness. CT angiogram of the chest on 04/10, showed minimal focal area of ground-glass opacity within the superior lateral aspect of the superior segment of the lower lobe, which may represent a focal area of inflammatory/infectious pneumonitis. There was no evidence for pulmonary arterial embolism. She was afebrile, had no leukocytosis. She was not treated with antibiotics. CT scan of the abdomen and pelvis suggested gastric outlet obstruction since there was a lot of debris in the stomach which was markedly distended. She was seen by Gastroenterology Service. It was felt that the CT finding was because she had recently eaten prior to the CT scan. She underwent EGD on 04/12, it was normal. Biopsies from small bowel and duodenum were taken, but the duodenal mucosa appeared normal. They recommended PPI therapy. She has been started on a Protonix 40 mg daily. [facility] was consulted for homicidal ideation. They recommended inpatient psychiatric therapy. On the night of 04/13, she was discharged to [facility] for further management. DISCHARGE DESTINATION: [facility]. TIME SPENT: Total amount of time spent coordinating this discharge: 33 minutes. Job ID: [id number]
--- NOTE | 2019-04-17 16:51 | EKG ---
Test Reason : STAT Blood Pressure : / mmHG Vent. Rate : 108 BPM Atrial Rate : 108 BPM P-R Int : 122 ms QRS Dur : 070 ms QT Int : 344 ms P-R-T Axes : 084 066 076 degrees QTc Int : 460 ms Sinus tachycardia Otherwise normal ECG When compared with ECG of 10-APR-2019 08:30, (Unconfirmed) No significant change was found Confirmed by ANGELITO HERNANDEZ (2) on 04/17/2019 4:50:59 PM Referred By: DEWAYNE Confirmed By:ANGELITO HERNANDEZ
== END 2019-04-14 03:15 | DRG 811 ==
LOC: ERS 15:23 → T4-B 19:44
PROVIDERS: ADMIT Internal Medicine; ATTEND Internal Medicine
PROC: 30233N1 Transfusion of Nonautologous Red Blood Cells into Peripheral Vein, Percutaneous Approach (ICD-10-PCS; principal; 2019-04-09)
PROC: 0DB98ZX Excision of Duodenum, Via Natural or Artificial Opening Endoscopic, Diagnostic (ICD-10-PCS; 2019-04-09)
DX: D62 Acute posthemorrhagic anemia (principal); E43 Unspecified severe protein-calorie malnutrition; Z68.1 Body mass index [BMI] 19.9 or less, adult; D50.9 Iron deficiency anemia, unspecified; F41.9 Anxiety disorder, unspecified; F32.9 Major depressive disorder, single episode, unspecified; R07.9 Chest pain, unspecified; R45.850 Homicidal ideations; J42 Unspecified chronic bronchitis; R10.30 Lower abdominal pain, unspecified; Z88.2 Allergy status to sulfonamides; Z98.51 Tubal ligation status; Z88.8 Allergy status to other drugs, medicaments and biological substances; Z91.048 Other nonmedicinal substance allergy status
CPT/HCPCS: 36415; 36430; 71275; 74177; 80048; 84484; 85025; 85379; 86850; 86900; 86901; 88305; 88312; 93005; 93010; J0131; J2001; J2270; J2405; J2704; J3010; J3490; P9016; Q9966